=== PATIENT | female | born 1995 | race Caucasian/White ===

== ENCOUNTER 2020-10-22 08:38 | Outpatient (CLI) | payer OTHER ==
[~2020-10-22 08:38] MED LIST: ALAVERT; ZYRTEC10 MG PO
== END 2020-10-22 09:04 | disposition home or self-care (01) ==
LOC: MAMO-SONO 08:38
PROVIDERS: ATTEND General Practice
DX: N64.4 Mastodynia (principal); N60.21 Fibroadenosis of right breast; N60.22 Fibroadenosis of left breast; Z80.3 Family history of malignant neoplasm of breast